=== PATIENT | female | born 1965 | race Caucasian/White ===

== ENCOUNTER → 2018-08-01 | Outpatient (CLI) | payer MEDICARE, MEDICAID | END | disposition home or self-care (01) | LOC: CFH 13:16 | PROVIDERS: ATTEND Nurse Practitioner Family | DX: R05 Cough (principal); F17.200 Nicotine dependence, unspecified, uncomplicated | CPT/HCPCS: 71046 ==

== ENCOUNTER → 2020-01-01 | Outpatient (CLI) | payer MEDICARE, MEDICAID | END | disposition home or self-care (01) | LOC: CFH 11:17 | PROVIDERS: ATTEND Nurse Practitioner Family | DX: R10.2 Pelvic and perineal pain (principal); Z90.710 Acquired absence of both cervix and uterus | CPT/HCPCS: 76830 ==

== ENCOUNTER 2020-10-10 08:22 | Emergency (ER) | payer MEDICARE, MEDICAID ==
[2020-10-10 08:26] VITALS: BP 149/98
[2020-10-10] MEDS ORDERED: FLUCONAZOLE 100 MG TABLET PO ONE (10:30)
[2020-10-10] MEDS ORDERED: FLUCONAZOLE 100 MG TABLET ONE (10:41)
--- NOTE | 2020-10-10 10:49 | NUR ---
Patient/Caregiver given discharge instructions and they have confirmed that they understand the instructions. Patient ambulatory with steady gait. NAD, all questions answered appropriately, denies additional needs at this time. No personal belongings left in room after discharge.
== END 2020-10-10 10:51 | disposition home or self-care (01) ==
LOC: ED 10:30
DX: B37.89 Other sites of candidiasis (principal); B35.6 Tinea cruris
CPT/HCPCS: 99283